=== PATIENT | male | born 1975 | race Caucasian/White ===

== ENCOUNTER → 2017-05-01 15:09 | Outpatient (CLI) | payer OTHER, SELFPAY ==
--- NOTE | 2017-05-01 15:11 | RAD_ITS ---
STUDY: X-RAY - PELVIS AND LEFT HIP REASON FOR EXAM: Male, 41 years old. Left hip pain. Popping sound. TECHNIQUE: Radiological exam, hip, unilateral, with pelvis when performed; 2 or 3 views. COMPARISON: Pelvis and right hip, September 22, 2016. FINDINGS: There is a non-specific bowel gas pattern. Normal visualized soft tissue structures. Normal bilateral iliac wings, sacroiliac joints and visualized sacrum. Normal bilateral superior and inferior pubic rami. Normal pubic symphysis. Normal bilateral ischial tuberosities. The right hip appears unchanged. Normal visualized left femoral head. Normal left acetabulum. Normal left hip joint. RAD/Hip 2-3 Views with Pelvis IMPRESSION: Normal x-ray examination of the pelvis and left hip. Electronically Signed: Jose Francisco DO at 8:37 EST Tel [phone], Service support ,
== END ==
PROVIDERS: Visit Provider Orthopaedic Surgery
DX: M25.552 Pain in left hip (principal)
CPT/HCPCS: 73502; 77067